=== PATIENT | male | born 1965 | race Caucasian/White ===

== ENCOUNTER 2018-07-11 12:23 | Emergency (ER) | payer SELFPAY ==
[~2018-07-11] VITALS: Ht 185.4 cm; Wt 84.1 kg
[2018-07-11 12:35] VITALS: Ht 185.4 cm; Wt 84.1 kg
[2018-07-11 13:29] LABS: BASOPHILS 0.3 % (0-2); EOSINOPHILS 1.3 % (0-7); HEMATOCRIT 45.4 % (42.0-54.0); HEMOGLOBIN 16.3 g/dL (13.5-17.5); IMMATURE GRANULOCYTES 0.2 % (0-5); LYMPHOCYTES 10.4 % (15-50); MCH 32.1 pg (26.0-34.0); MCHC 35.9 g/dL (31.0-37.0); MCV 89.4 fL (80.0-100.0); MEAN PLATELET VOLUME 10.8 fL (7.4-10.4); MONOCYTES 5.8 % (2-11); PLATELET COUNT 172 10x3/uL (130-400); RBC 5.08 10x6/uL (4.20-6.10); RDW 13.8 % (11.5-14.5); WBC 10.4 10x3/uL (4.8-10.8)
[2018-07-11 13:45] LABS: ALKALINE PHOSPHATASE 45 U/L (46-116); ALT (SGPT) 24 U/L (10-68); BILIRUBIN - TOTAL 1.57 mg/dL (0.2-1.3); CALC OSMOLALITY 276 mosm/kg (275-300); CALCIUM 8.8 mg/dL (8.5-10.1); CARBON DIOXIDE 21.4 mmol/L (21.0-32.0); CHLORIDE - SERUM 103 mmol/L (98-107); CREATININE - SERUM 1.1 mg/dL (0.6-1.3); GLUCOSE 115 mg/dL (74-106); POTASSIUM - SERUM 3.8 mmol/L (3.5-5.1); SODIUM 138 mmol/L (136-145); UREA NITROGEN 12 mg/dL (7-18); eGFR NON AFRICAN AMERICAN 75 mL/min (90-120)
[2018-07-11 14:01] LABS: CREATINE KINASE 138 UL (21-232)
[2018-07-11] MEDS ORDERED: VENTOLIN HFA18 GM INH (16:56)
[2018-07-11] MEDS ORDERED: LEVAQUIN750 MG PO (16:56)
[2018-07-11 19:35] VITALS: BP 130/87
[2018-07-25 19:01] VITALS: Ht 185.4 cm; Wt 84.1 kg
== END 2018-07-11 19:35 | disposition home or self-care (01) ==
LOC: D.ER 12:23
PROVIDERS: Emergency Medicine
DX: R05 Cough (principal); R53.81 Other malaise; J18.9 Pneumonia, unspecified organism; R07.9 Chest pain, unspecified; R06.02 Shortness of breath; R09.89 Other specified symptoms and signs involving the circulatory and respiratory systems; F17.200 Nicotine dependence, unspecified, uncomplicated; R00.0 Tachycardia, unspecified; I44.7 Left bundle-branch block, unspecified

== ENCOUNTER 2018-07-24 10:12 | Inpatient (IN) | payer MEDICAID ==
[~2018-07-24] VITALS: Ht 185.4 cm; Wt 101.2 kg
[2018-07-24] VITALS (55 sets, daily range): BP systolic 72–137; BP diastolic 49–99; BMI 26.4
--- NOTE | ~2018-07-24 | EC ---
PATIENT:IRASEMA CORDON DATE OF SERVICE: 07/24/18 SEX: M MEDICAL RECORD: [id number] DATE OF : 67 LOCATION:[facility] D230 AGE OF PATIENT: 52 ADMISSION DATE: 07/24/18 REFERRING PHYSICIAN: INTERPRETING PHYSICIAN: VAISHNAVI BEVERLY MD ECHOCARDIOGRAM REPORT ECHO CHARGES 5 ECHO LIMITED Date: 07/30/18 CLINICAL DIAGNOSIS: ASSESS EF HX OF CAD ECHOCARDIOGRAPHIC MEASUREMENTS (adult normal given) AC root (d.<3.7cm) 4.2 cm LV Septum d (<1.2 cm> 1.0 cm Valve Excursion 1.4 cm LV Septum (systole) 1.2 cm Left Atria (s.<4.0cm> 4.5 cm LVPW d(<1.2cm) 1.5 cm RV (d.<2.3cm) 5.8 cm LVPW (sytole) 1.8 cm LV diastole(<5.6CM) 7.4 cm MV E-F(>70mm/sec) cm LV systole 6.3 cm LVOT Diameter cm MV exc.(>10mm) cm Est.ejection fraction (50-75%) % DOPPLER: LVIT cm/sec A cm/sec E cm/sec LA cm/sec RVSP 34 mmHg LVOT cm/sec AOP1/2T m/s Asc. Ao cm/sec RVOT cm/sec RA cm/sec PA cm/sec AV Gradient Peak mmHg AV Mean mmHg AV Area cm MV Gradient Peak mmHg MV Mean mmHg MV Area cm COMMENTS: Technical Architect: 2 YING VARNER Co Founder: 3 Dr. Potts TAPE# PACS Pericardial Effusion N DATE OF SERVICE: Adequate 2D echo, color flow, spectral Doppler, and M-mode No LVH. LV internal dimension are dilated. LV is globally hypokinetic with more marked anterior hypokinesis. Overall, function reduced 30-35%. Aortic valve shows no evidence of stenosis by Doppler interrogation. Left atrium dilated to 4.5 cm. Mitral valve shows no prolapse. Yfat-cr-nkptgnqd MR. Right-sided chamber is grossly normal. Mild TR. Estimated RV systolic pressure is estimated greater than or equal to 34 mmHg via the continuity equation. ECHOCARDIOGRAM REPORT [id number] IRASEMA CORDON TRANSINT:[id number] Voice Confirmation ID: [id number] DOCUMENT ID: [id number] VAISHNAVI BEVERLY MD at 1418 CC: [id number] DICTATION DATE: 07/30/181617 TRACTOR SWEEPER DRIVER: 07/30/182200 DIS IN 08/02/18 [facility] [address] [place] [address]
--- NOTE | ~2018-07-24 | CN ---
PATIENT NAME:IRASEMA CORDON MEDICAL RECORD: [id number] : 67 LOCATION:[facility].2305 ADMIT DATE: 07/24/18 ACCOUNT: [id number] CONSULTING PHYSICIAN: LUH HAUSER MD REFERRING PHYSICIAN: CHARLY BLANK MD DATE OF CONSULTATION: 07/24/2018 CARDIOLOGY CONSULTATION DIAGNOSES: 1. Non-Q-wave myocardial infarction. 2. Coronary artery disease. 3. Previous PTCA stent. 4. Respiratory failure requiring intubation. 5. COPD. 6. Past smoking history. HISTORY OF PRESENT ILLNESS: This is a gentleman with a past cardiac history, who called this morning, he began having chest pain and shortness of breath. He presented to the Emergency Room, was in respiratory failure at the time of presentation, requiring immediate intubation. His chest x-ray is compatible with possible congestive heart failure, pulmonary edema. His troponin is positive. He was initially with sinus tachycardia, now he is with sinus bradycardia. His bradycardia is going to the low 40s. PHYSICAL EXAMINATION: GENERAL APPEARANCE: Well-nourished, well-developed, appears stated age. Level of distress, comfortable. PSYCHIATRIC: Mental status, alert, normal affect. Orientation, oriented to time, place and person. EYES: Lids and conjunctiva, noninjected. No discharge, no pallor. ENT: Lips, teeth, gums, normal dentition. Oropharynx, no cyanosis, no pallor. NECK: Carotid arteries, bilateral normal upstroke, no bruits, no thrills. JUGULAR VEINS: No jugular venous pressure or distention. CERVICAL LYMPH NODES: Nontender, nonenlarged. THYROID: Not enlarged. Nontender. No nodules. LUNGS: Respiratory effort, unlabored. CHEST: Normal curvature. No thoracic deformity. No chest wall tenderness. Percussion, resonant. Auscultation, clear. No wheezes, no rales, no rhonchi. CARDIOVASCULAR: Precordial exam, nondisplaced. No heaves or pericardial thrills. Rate and rhythm, regular. Heart sounds, normal S1, normal S2. No S3, no gallop, no rub. Systolic murmur, not heard. Diastolic murmur, not heard. EXTREMITIES: No cyanosis, no edema. Peripheral pulses, full and equal in all extremities, except as noted. No bruits appreciated. ABDOMEN: Soft, nondistended. Normal aorta. No bruit. Nontender. No masses. Liver, nontender, no hepatomegaly. Spleen, nontender, no splenomegaly. MUSCULOSKELETAL: No joint tenderness. No joint swelling. No erythema. NEUROLOGICAL: Normal gait, normal strength, normal tone. SKIN: Warm and dry. OVERALL IMPRESSION: Non-Q-wave myocardial infarction, now with rhythm disturbances and bradycardia. He is intubated, but he is becoming more emergent from a cardiac standpoint, we will proceed with emergent coronary angiography. Further care depends upon the findings of the angiography. We will also place a temporary pacemaker at this time. CONSULT REPORT [id number] IRASEMA CORDON TRANSINT:[id number] Voice Confirmation ID: [id number] DOCUMENT ID: [id number] LUH HAUSER MD at 3533 CC: [id number] DICTATION DATE: 07/24/18 1304 BUNCH BREAKER MACHINE OPERATOR: 07/24/18 1319 ADM IN [facility] [address] [place] [id number]
--- NOTE | ~2018-07-24 | HEMODYNAMI ---
PATIENT:CHRIS CORDON MEDICAL RECORD: [id number] : 67 LOCATION:[facility] D.2305 ADMISSION DATE: 07/24/18 Generatedon:07/24/201814:41 Patient name: CHRIS CORDON Patient #: [id number] SSN: : Date of study: 07/24/2018 Page: Of Hemodynamic Procedure Report Patient Data Patient Demographics Procedure consent was obtained First Name: CHRIS Gender: Male Last Name: BRAVO : 1965 Patient #: [id number] Age: 52 year(s) Race: Unknown Additional ID: [id number] Contact details Address: [address] [place] [address] State: [place] City: [place] Zip code: [address] Past Medical History Allergies: No known allergies Admission Admission Data Admission Date: 07/24/2018 Admission Time: 12:26 Room #: D2305 Lab Results Lab Result Date: 07/24/2018 Lab Result Time: 11:20 Biochemistry Name Units Result Min Max BUN mg/dl 28 --(----)-* 7 18 Creatinine mg/dl 1.6 --(----)-* 0.6 1.3 Troponin l ng/ml 1.049 --(----)-* 0 0.06 CBC Name Units Result Min Max Hematocrit % 44.3 --(*---)-- 42 54 Hemoglobin g/dl 15.2 --(-*--)-- 13.5 17.5 Procedure Procedure Types Cath Procedure Diagnostic Procedure LHC LHC w/Coronaries Intra-Aortic Balloon Pump PCI Procedure Coronary Stent Coronary Stent Initial Procedure Description Procedure Date Procedure Date: 07/24/2018 Procedure Start Time: 13:52 Procedure End Time: 14:41 Procedure Staff Name Function José Miguel Pink MD Performing Physician Jer Brandon RT Scrub Radha Taveras RT Monitor Gisella Holcomb RN Nurse Danielle Neville RN Nurse Aldo Britt RT Monitor Procedure Data Cath Procedure Fluoroscopy Diagnostic fluoroscopy Total fluoroscopy Time: 9 time: 9 min min Diagnostic fluoroscopy Total fluoroscopy dose: 826 dose: 826 mGy mGy Contrast Material Contrast Material Type Amount (ml) Isovue 300 95 Entry Location Entry Primary Successful Side Size Upsize Upsize Entry Closure Succes sful Closure Location (Fr) 1 (Fr) 2 (Fr) Remarks Device Remarks Femoral Right 6 Fr 7 Fr artery Short Short Estimated blood loss: 10 ml Diagnostic catheters Device Type Used For End Catheter Placement MULTIPACK Pigtail 5 Fr Procedure catheter MULTIPACK JL 4.0 5Fr Procedure catheter MULTIPACK 3DRC 5Fr Procedure catheter Procedure Medications Medication Administration Route Dosage Oxygen 100 0.9% NaCl I.V. 100 ml/hr Diprivan 1% I.V. 40 mcg/kg/min (Propofol) Heparin Bolus I.V. 4000 units Integrilin (Bolus I.V. 7.3 ml 2mg/ml) Integrilin Drip I.V. drip 6.6 ml/hr (75mg/100ml) Heparin Flush Bag 1 bags (1000units/500ml NS) Hemodynamics Rest HGB: 15.2 (g/dl) Heart Rate: 77 (bpm) Pressure Samples Time Site Value (mmHg) Purpose Heart Use Rate(bpm) 13:53 LV 90/18,26 Snapshot 77 Snapshots Pre Cath Intra NCS Post Cath Vital Signs Time Heart Resp SPO2 etCO2 NIBP (mmHg) Rhythm Pain Sedation Rate (ipm) (%) (mmHg) Status Level (bpm) 13:41:27 88 20 95 0 114/86(101) NSR 0 (11) 2(A) , No pain 13:45:37 81 21 95 0 105/76(91) NSR 0 (11) 2(A) , No pain 13:49:40 85 21 95 0 108/82(93) NSR 0 (11) 2(A) , No pain 13:53:52 76 21 98 0 98/69(86) NSR 0 (11) 2(A) , No pain 13:58:02 82 20 97 0 97/69(83) NSR 0 (11) 2(A) , No pain 14:02:10 88 20 99 0 91/70(80) NSR 0 (11) 2(A) , No pain 14:06:14 84 21 99 0 104/75(87) NSR 0 (11) 2(A) , No pain 14:10:56 89 20 98 0 132/98(119) NSR 0 (11) 2(A) , No pain 14:15:12 79 20 96 0 106/71(87) NSR 0 (11) 2(A) , No pain 14:19:25 79 21 97 0 102/69(89) NSR 0 (11) 2(A) , No pain 14:23:36 73 20 97 0 87/64(73) NSR 0 (11) 2(A) , No pain 14:28:33 84 20 95 0 137/79(92) NSR 0 (11) 2(A) , No pain 14:32:49 77 20 95 0 95/69(85) NSR 0 (11) 2(A) , No pain 14:36:59 78 21 98 0 92/61(74) NSR 0 (11) 2(A) , No pain 14:41:07 73 20 98 0 86/64(79) NSR 0 (11) 2(A) , No pain Medications Time Medication Route Dose Verified Delivered Reason Notes Effectiveness by by 13:43:00 Oxygen ventilator 100% FiO2 José Miguel gonzalez 02 sats Apryl HUMMEL 13:43:10 0.9% NaCl I.V. 100 ml/hr José Miguel Santos used for Apryl Neville air dispatcher 13:43:33 Diprivan 1% I.V. 40mcg/kg/min José Miguel Santos for sedatio n (Propofol) Apryl Neville RN 13:57:46 Heparin Bolus I.V. 4000 units José Miguel Santos for verified Apryl Neville anticoagulation with dr CHANDU pink 13:59:22 Integrilin I.V. 7.3 ml José Miguel Santos for Wasted (Bolus 2mg/ml) Apryl Neville antiplatelet 2.7 ml RN therapy of vial 14:04:30 Integrilin Drip I.V. drip 6.6 ml/hr José Miguel Santos for renal (75mg/100ml) Apryl Neville anticoagulation dose RN 14:17:38 Heparin Flush 1 bags José Miguel Velasqueza for Bag Apryl Neville IABP . (1000units/500ml RN NS) Procedure Log Time Note 13:00:35 Gisella Holcomb RN sent for patient. Start room use. 13:11:13 Informed consent obtained and on chart 13:11:34 Diagnostic Cath status Elective 13::41 Time tracking: Regular hours (M-F 7:00 - 5:00) 13:11:44 Plan of Care:Hemodynamics will remain stable., Cardiac rhythm will remain stable., Comfort level will be maintained., Respiratory function will remain adequate., Patient/ family verbilizes understanding of procedure., Procedure tolerated without complication., Recovers from procedure without complications.. 13:11:53 H&P Date Dictated: 07/24/2018 ER History on chart., New H&P dictated by physician.. 13:12:41 Lab Result : BUN 28 mg/dl 13:: Lab Result : Creatinine 1.6 mg/dl 13:: Lab Result : Troponin l 1.049 ng/ml 13::41 Lab Result : Hematocrit 44.3 % 13::41 Lab Result : Hemoglobin 15.2 g/dl 13::43 Lab results completed and on chart. 13:25:43 Procedure type changed to Cath procedure, Diagnostic procedure, LHC, LHC w/Coronaries, Intra-Aortic Balloon Pump, PCI procedure, Coronary Stent, Coronary Stent Initial 13:33:55 Patient received from ED to CCL 1 On ventilator. Tansferred to table in Supine position. 13:33:57 Warm blankets applied, and dustin hugger turned on for patient comfort. 13:33:57 Correct patient and procedure confirmed by team. 13:33:58 ECG and BP/O2 sat monitors applied to patient. 13:33:58 Pre-procedure instructions explained to patient. 13:34:04 Unable to provide pre-op teaching due to educational barrier. Vent 13:40:31 Vital chart was started 13:43:00 Oxygen 100% FiO2 ventilator was administered by ; for low 02 sats; 13:43:10 0.9% NaCl 100 ml/hr I.V. was administered by Danielle Neville RN; used for procedure; 13:43:22 Use device set Femoral Dx 13:43:24 ACIST Syringe (66722) opened to sterile field. 13:43:25 Bag Decanter (2001S) opened to sterile field. 13:43:28 Medline Cath Pack ([id number]) opened to sterile field. 13:43:29 DIAGNOSTIC WIRE .035 260cm J wire ([id number]) opened to sterile field. 13:43:32 ACIST Hand Control (02491) opened to sterile field. 13:43:33 Diprivan 1% (Propofol) 40mcg/kg/min I.V. was administered by Danielle Neville RN; for sedation; 13:43:33 ACIST Manifold (93358) opened to sterile field. 13:43:34 DIAGNOSTIC Multipack 5Fr catheter set (SV7858) opened to sterile field. 13:43:36 Tegaderm 4 x 4 (1626W) opened to sterile field. 13:44:11 SHEATH Prelude 6Fr 0.035 (BOQ-0L-05-035) opened to sterile field. 13:44:12 SHEATH Prelude 6Fr 0.035 (HAW-9A-36-035) opened to sterile field. 13:46:45 Pt intubated upon arrival to ER and propofol drip initiated. Will use propofol as sedation for cath procedure. 13:47:34 Patient allergic to No known allergies 13:47:43 Is patient on blood thinner?No 13:47:46 Is the patient allergic to Iodine/contrast media? No. 13:47:50 Patient diabetic? Unknown. 13:47:58 Previous problem with sedation/anesthesia? Unknown ? 13:48:03 Snore? Unknown 13:48:09 Sleep apnea? Unknown 13:48:17 Deviated septum? Unknown 13:48:19 Opens mouth fully? Unknown 13:48:22 Sticks out tongue? Unknown 13:48:33 Airway obstruction? No ? 13:48:48 IV patent on arrival in right forearm, left forearm with 0.9% NaCl at [facility]. 13:48:54 Right groin area was prepped with chlora-prep and draped in sterile fashion 13:48:57 Alarms reviewed by R. N. 13:48:57 Sharps counted by scrub and verified by R.N. 13:48:58 Physician arrived 13:48:59 --------ALL STOP TIME OUT------ 13:48:59 Final Timeout: patient, procedure, and site verified with staff and physician. All members of the team are in agreement. 13:49:01 Right groin site verified by team. 13:49:33 Physical assessment completed. ASA score P 4 - A patient with severe systemic disease that is a constant threat to life as per José Miguel Pink MD. 13:49:41 Sedation plan: IV Moderate Sedation Medication:Versed, Fentanyl 13:51:38 Zero performed for pressure channel P1 13:51:59 Procedure started. 13:51:59 Full Disclosure recording started 13:52:05 Local anesthetic to right femoral artery with Lidocaine 2% by José Miguel Pink MD.INITIAL ACCESS ONLY 13:52:52 A 6 Fr Short sheath was inserted into the Right Femoral artery 13:53:02 A MULTIPACK Pigtail 5 Fr catheter was advanced over the wire and used for Procedure. 13:54:08 LV hemodynamics recorded. 13:54:10 LV gram done using WHITAKER 13:54:16 EF : 10 % 13:54:38 Catheter removed. 13:54:43 A MULTIPACK JL 4.0 5Fr catheter was advanced over the wire and used for Procedure. 13:55:21 LCA angiography performed. 13:55:57 Catheter removed. 13:56:14 A MULTIPACK 3DRC 5Fr catheter was advanced over the wire and used for Procedure. 13:56:47 RCA angiography performed. 13:56:51 Catheter removed. 13:56:53 Proceeding to intervention. 13:57:08 GUIDE 6FR AR 2.0 SH catheter ([id number]) opened to sterile field. 13:57:46 Heparin Bolus 4000 units I.V. was administered by Danielle Neville RN; for anticoagulation; verified with dr pink 13:58:24 FIELDER XT J 300cm guide wire ([id number]) opened to sterile field. 13:59:01 6 Fr AR 2 SH guide catheter was inserted over the wire 13:59:22 Integrilin (Bolus 2mg/ml) 7.3 ml I.V. was administered by Danielle Neville RN; for antiplatelet therapy; Wasted 2.7 ml of vial 13:59:32 CHOICE wire advanced. 14:00:32 Inflate balloon Inflation number: 1 A INTEGRITY RX 2.5 x 18 stent ([id number]) was prepped and advanced across the Dist RCA, then inflated to 13 CHERYL for 0:10 (min:sec). 14:00:44 Stent catheter was removed intact over wire. 14:01:39 Place stent Inflation Number: 1 A INTEGRITY RX 3.0 x 30 stent ([id number]) was prepped and advanced across the Mid RCA. The stent was deployed at 13 CHERYL for 0:10 (min:sec). 14:02:24 Stent catheter was removed intact over wire. 14:04:30 Integrilin Drip (75mg/100ml) 6.6 ml/hr I.V. drip was administered by Danielle Neville RN; for anticoagulation; renal dose 14:05:15 Place stent Inflation Number: 1 A INTEGRITY RX 3.0 x 30 stent ([id number]) was prepped and advanced across the Prox RCA. The stent was deployed at 13 CHERYL for 0:10 (min:sec). 14:05:20 Stent catheter was removed intact over wire. 14:05:21 Wire removed. 14:05:24 Guide catheter removed. 14:06:23 INFLATOR Merit BasixCompak (DU0617) opened to sterile field. 14:07:12 SHEATH 7FR [place] (CIS391) opened to sterile field. 14:07:27 IABP 34cm balloon catheter ([id number]) opened to sterile field. 14:07:49 Sheath upsized to a 7 Fr Short. 14:08:13 IABP-------- 14:08:30 34cc IABP inserted into the RFA . 14::23 Augmentation: 1:1 per physician. 14:14:27 Trigger: Pressure 14:17:38 Heparin Flush Bag (1000units/500ml NS) 1 bags was administered by Danielle Neville RN; ; for IABP. 14:19:59 IABP SEWN IN 14:20:12 SUTURE SILK 2-0 BLK BR FS 18 I opened to sterile field. 14:20:13 SUTURE SILK 2-0 BLK BR FS 18 I opened to sterile field. 14:21:34 Procedure ended.(Physican Out) 14:21:41 Fluoroscopy time 09.00 minutes. 14:21:47 Fluoroscopy dose: 826 mGy 14:21:47 Flurop Dose total: 826 14:21:57 Contrast amount:Isovue 300 95ml. 14:25:36 Insertion/operative site no bleeding no hematoma. 14:25:45 Post-op/insertion site Right Femoral artery dressed using a 4 x 4 and Tegaderm. 14:26:18 Post right femoral artery:stable 14:26:47 Post-procedure physical assessment completed. ASA score P 4 - A patient with severe systemic disease that is a constant threat to life as per José Miguel Pink MD. 14:26:56 Post procedure rhythm: sinus rhythm 14:27:32 Estimated blood loss: 10 ml 14:27:40 Post procedure instruction explained to patient.Patient verbalizes understanding. 14:27:42 Patient needs reinforcement of post procedure teaching. 14:32:27 Procedure and supply charges have been captured, reviewed, submitted and are correct. 14:40:49 Vital chart was stopped 14:40:50 See physician's report for complete and final results. 14:40:52 Report given to CVICU. 14:40:57 Patient transfered to CVICU with Bed. 14:40:59 Procedure ended. 14:40:59 Full Disclosure recording stopped 14:41:02 End room use (Document Last) Intervention Summary Intervention Notes Time ActionType Lesion and Equipment Action# Pressure Duration Attributes Used 14:00:32 Inflate Dist RCA INTEGRITY RX 1 13 00:10 balloon 2.5 x 18 stent ([id number]) 14:01:39 Place stent Mid RCA INTEGRITY RX 1 13 00:10 3.0 x 30 stent ([id number]) 14:05:15 Place stent Prox RCA INTEGRITY RX 1 13 00:10 3.0 x 30 stent ([id number]) Device Usage Item Name Manufacture Quantity Catalog Number [facility] nt Minimal Lot# / Charge Number Stock Stock Serial# Code ACIST Syringe Acist 1 93689 883179 053843 61622 4 20 (57993) [employer] Bag Decanter Microtek 1 150184 13088 78604 9 5 () Medical Inc. Medline Cath Medline 1 [id number] 141492 03973 95207 5 5 Pack ([id number]) DIAGNOSTIC WIRE St Ttii 1 186178 264883 323052 07956 2 30 .035 260cm J wire (215568) ACIST Hand Acist 1 89109 133767 742157 20429 8 5 Control (02967) [employer] Inc ACIST Manifold Acist 1 17407 042152 750752 97603 5 5 (06676) [employer] Systems Inc DIAGNOSTIC Cardinal 1 [id number] 955610 02350 13037 5 30 Multipack 5Fr Health catheter set (ZL5347) Tegaderm 4 x 4 3M 1 1626W 075757 411597 03047 4 5 (1626W) SHEATH Prelude Merit 2 QLJ-6U-79-35 278271 7101675 19814 0 5 6Fr 0.035 Medical (UVJ-7I-38-035) MULTIPACK Cardinal 1 85290 7 5 Pigtail 5 Fr Health catheter MULTIPACK JL Cardinal 1 36002 2 5 4.0 5Fr Health catheter MULTIPACK 3DRC Cardinal 1 92160 8 5 5Fr catheter Health GUIDE 6FR AR Medtronic 1 [id number] 888134 92222 41764 6 1 2.0 SH catheter ([id number]) FIELDER RAHEEM J William 1 [id number] 750980 171880 94713 1 5 300cm guide Vascular wire ([id number]) INTEGRITY RX Medtronic 1 [id number] 324705 824547 79589 1 5 [id number] 2.5 x 18 stent ([id number]) INTEGRITY RX Medtronic 2 [id number] 943602 960160 95391 2 5 [id number] 3.0 x 30 stent [id number] ([id number]) INFLATOR Merit Merit 1 TH7965 224872 021992 78422 6 15 BasixCompak Medical ([id number]) SHEATH 7FR Terumo 1 XUV074 296022 832073 06312 8 5 [place] (PSU690) IABP 34cm [facility] 1 [id number] 599457 892899 87747 4 1 balloon [facility] catheter (575090) ([id number]) SUTURE SILK 2-0 Ethicon 2 685H 394212 38721 4 5 BLK BR FS 18 I Signature Audit [place] Stage Time Signature Unsigned Intra-Procedure 07/24/2018 Aldo Britt 2:41:30 PM RT(R) (CV) Signatures Monitor : Radha Taveras RT Signature : Date : Time : Monitor : Aldo Britt RT Signature : Date : Time : [address] [place] [address]
--- NOTE | ~2018-07-24 | CN ---
PATIENT NAME:IRASEMA BUSBY MEDICAL RECORD: [id number] : 67 LOCATION:[facility].2305 ADMIT DATE: 07/24/18 ACCOUNT: [id number] CONSULTING PHYSICIAN: ROXY LEAL MD REFERRING PHYSICIAN: RADHA BLANK MD DATE OF CONSULTATION: 07/24/2018 CONSULT REQUESTING PHYSICIAN: Radha Blank MD REASON FOR CONSULTATION: Vent management, acute respiratory failure, and cardiogenic shock. HISTORY OF PRESENT ILLNESS: Mr. Busby is a 52-year-old gentleman who is now orally intubated and sedated. The history was taken by talking to the nursing staff as well as reviewing the patient's note. The patient came into the ER with acute respiratory distress. He was in agonal breathing. The patient put on BiPAP, not getting any better, electively intubated. The patient was taken to cardiac catheterization. He has multiple vessel disease and intra-aortic balloon pump was put in and now the patient is in the ICU, sedated and on the ventilator. REVIEW OF SYSTEMS: As in the history of present illness. PAST MEDICAL HISTORY: 1. He has recent pneumonia, was seen in the ER. 2. Possible chronic obstructive pulmonary disease. PAST SURGICAL HISTORY: The detail is not obtainable. PERSONAL AND SOCIAL HISTORY: The patient is a nondrinker, but he is smoking marijuana. FAMILY HISTORY: Noncontributory. PHYSICAL EXAMINATION: GENERAL: Now, the patient is orally intubated and sedated. VITAL SIGNS: The blood pressure is 82-90 by 51, pulse is 77, respiration is 20 on assist control mechanical ventilation. HEENT: Conjunctivae are pink. Sclerae nonicteric. NECK: Supple. There is elevated JVD. CHEST: There are bilateral crackles. No wheezing. HEART: Rhythm regular, normal sound, no murmur. ABDOMEN: Soft, bowel sounds present. No hepatosplenomegaly. RECTAL: Deferred. EXTREMITIES: No cyanosis, no clubbing, no pedal edema. SKIN: Warm, normal turgor. CENTRAL NERVOUS SYSTEM: The patient is orally intubated and sedated, difficult to assess neurologic mckeon. CHEST RADIOGRAPH: There are bilateral infiltrates. LABORATORY DATA: CBC: WBC 15.5, hemoglobin 15.2, hematocrit 44.3, and the platelet count 229. Chemistry: Sodium 140, potassium is 5, BUN is 28, creatinine 1.6. CONSULT REPORT [id number] IRASEMA BUSBY ABG: The pH was 7.8, pCO2 was 57.7, the pO2 was 241, bicarbonate is 21.6. The lactic acid was 1.45. The proBNP was 19,336. IMPRESSION: 1. Acute hypoxic hypercapnic respiratory failure. 2. Acute respiratory distress syndrome with acute lung injury. 3. Pulmonary edema. 4. Multilobar pneumonia. 5. Acute myocardial infarction. 6. Respiratory acidosis. 7. Cardiogenic shock. 8. Coronary artery disease with multivessel disease. 9. Leukocytosis. RECOMMENDATIONS: 1. Continue mechanical ventilation, adjust the setting. 2. Albuterol/ipratropium nebulizer. 3. Vancomycin, Zosyn, and Levaquin to cover for Gram negative as well as questionable MRSA. 4. Low-dose methylprednisolone. 5. DVT and GI bleed prophylaxis. 6. Follow up labs and chest radiographs. The critical care time is 1 hour. TRANSINT:[id number] Voice Confirmation ID: [id number] DOCUMENT ID: [id number] ROXY LEAL MD at 1234 CC: [id number] DICTATION DATE: 07/24/18 1738 MEDICAL PHYSICS PROFESSOR: 07/24/18 1056 DIS IN 08/02/18 [address] [id number] [place] [address]
--- NOTE | ~2018-07-24 | OP ---
PATIENT NAME: IRASEMA CORDON MEDICAL RECORD: [id number] :67 LOCATION:D.[facility] D.2305 ADMISSION DATE:07/24/18 SURGEON: LUH HAUSER MD DATE OF OPERATION: 07/24/2018 PROCEDURES: 1. PTCA and stent of RCA. 2. Left heart catheterization. 3. Selective coronary angiography. 4. Left ventriculogram. 5. Intra-aortic balloon pump placement. INDICATION: Myocardial infarction, cardiomyopathy, congestive heart failure, and coronary artery disease. PROCEDURE IN DETAIL: After informed consent was obtained and after a detailed explanation of risks, benefits as well as alternative therapies, the patient elected to proceed with angiogram and angioplasty. The right femoral area was prepped and draped in normal sterile fashion. Right femoral artery was cannulated via modified Seldinger technique with placement of 7-Kinyarwanda sheath. All catheters exchanged through this sheath. FINDINGS: Left ventriculogram was performed in a standard 30-degree WHITAKER view, reveals severe global hypokinesis throughout all segments. Overall ejection fraction 10%. SELECTIVE CORONARY ANGIOGRAPHY: 1. Left main showed no significant angiographic disease. 2. Left anterior descending has 90% to 95% stenosis in the mid vessel. 3. Left circumflex has chronic total occlusion, 100% stenosis mid vessel. Distal vessel fills via ojqi-ab-eydt collaterals. 4. The right coronary has multiple areas of 80% to 90% stenosis. PTCA AND STENT OF THE RCA: Stents used were 2.5 x 18, 3.0 x 30, 3.0 x 30, all Integrity stents. Result was 0% residual stenosis. OVERALL IMPRESSION: Successful PTCA and stent of the RCA going from multiple areas of 90% initial stenosis to 0% residual. PLAN: Plan for PTCA and stent of the LAD and possible circumflex in the near future. At the end of the case, the patient remained in severe congestive heart failure and with severe cardiomyopathy. Intra-aortic balloon pump was placed. Intra-aortic balloon pump counterpulsation was undertaken. TRANSINT:[id number] Voice Confirmation ID: [id number] DOCUMENT ID: [id number] LUH HAUSER MD at 1913 CC: [id number] DICTATION DATE: 07/24/18 1417 AGRIBUSINESS PROFESSOR: 07/24/18 1543 ADM IN [facility] [address] [place] [address]
--- NOTE | ~2018-07-24 | HEMODYNAMI ---
PATIENT:IRASEMA CORDON MEDICAL RECORD: [id number] : 67 LOCATION:[facility] D.2305 ADMISSION DATE: 07/24/18 Generatedon:07/28/201812:59 Patient name: IRASEMA CORDON Patient #: [id number] SSN: : 1965 Date of study: 07/28/2018 Page: Of Hemodynamic Procedure Report Patient Data Patient Demographics Procedure consent was obtained First Name: IRASEMA Gender: Male Last Name: BRAVO : 1965 Patient #: [id number] Age: 52 year(s) Race: Unknown Additional ID: [id number] Contact details [address]: [address] [place] [address] State: [place] City: [place] Zip code: [address] Past Medical History Allergies: No known allergies Admission Admission Data Admission Date: 07/24/2018 Admission Time: 12:26 Room #: D.2305 Lab Results Lab Result Date: 07/24/2018 Lab Result Time: 11:20 Biochemistry Name Units Result Min Max BUN mg/dl 28 --(----)-* 7 18 Creatinine mg/dl 1.6 --(----)-* 0.6 1.3 Troponin l ng/ml 1.049 --(----)-* 0 0.06 CBC Name Units Result Min Max Hematocrit % 44.3 --(*---)-- 42 54 Hemoglobin g/dl 15.2 --(-*--)-- 13.5 17.5 Procedure Procedure Types Cath Procedure Diagnostic Procedure Sedation Charges Moderate Sedation up to 15 minutes PCI Procedure Coronary Stent Coronary Stent Initial Procedure Description Procedure Date Procedure Date: 07/28/2018 Procedure Start Time: 12:42 Procedure End Time: 12:54 Procedure Staff Name Function José Miguel Pink MD Performing Physician Radha Taveras RT Monitor Bria Dan RT Scrub Willis Valentin RN Nurse Procedure Data Cath Procedure Fluoroscopy Diagnostic fluoroscopy Total fluoroscopy Time: 3.2 time: 3.2 min min Diagnostic fluoroscopy Total fluoroscopy dose: 289 dose: 289 mGy mGy Contrast Material Contrast Material Type Amount (ml) Isovue 300 125 Entry Location Entry Primary Successful Side Size Upsize Upsize Entry Closure Succes sful Closure Location (Fr) 1 (Fr) 2 (Fr) Remarks Device Remarks Femoral Right 6 Fr Exoseal artery Short Estimated blood loss: 5 ml Procedure Complications No complications Procedure Medications Medication Administration Route Dosage Oxygen Heparin Flush Bag added to field 2 bags (1000units/500ml NS) 0.9% NaCl I.V. 100 ml/hr Heparin Bolus I.V. 4000 units Hemodynamics Rest HGB: 15.2 (g/dl) Heart Rate: 132 (bpm) Snapshots Pre Cath Intra NCS Post Cath Vital Signs Time Heart Resp SPO2 etCO2 NIBP (mmHg) Rhythm Pain Sedation Rate (ipm) (%) (mmHg) Status Level (bpm) 12:32:40 132 25 97 0 115/89(106) NSR 0 (11) 3(A) , No pain 12:36:47 129 23 96 0 113/83(100) NSR 0 (11) 3(A) , No pain 12:40:53 126 21 97 0 108/82(86) NSR 0 (11) 3(A) , No pain 12:44:55 129 22 97 0 111/87(98) NSR 0 (11) 3(A) , No pain 12:49:01 130 19 97 0 105/75(88) NSR 0 (11) 3(A) , No pain 12:53:02 131 22 97 0 111/84(96) NSR 0 (11) 3(A) , No pain 12:55:28 131 22 97 0 108/82(94) NSR 0 (11) 3(A) , No pain Medications Time Medication Route Dose Verified Delivered Reason Notes Effectiveness by by 12:39:01 Oxygen José Miguel resp Apryl HUMMEL 12:39:14 Heparin Flush added 2 José Miguel Pedro used for Bag to bags Apryl Valentin RN procedure (1000units/500ml field NS) 12:39:24 0.9% NaCl I.V. 100 José Miguel Pedro Per physician ml/hr Apryl Valentin RN 12:48:43 Heparin Bolus I.V. 4000 José Miguel Pedro for units Apryl Valentin RN anticoagulation Procedure Log Time Note 11:46:14 Willis Valentin RN sent for patient. Start room use. 11:46:15 Time tracking: Regular hours (M-F 7:00 - 5:00) 11:46:20 Plan of Care:Hemodynamics will remain stable., Cardiac rhythm will remain stable., Comfort level will be maintained., Respiratory function will remain adequate., Patient/ family verbilizes understanding of procedure., Procedure tolerated without complication., Recovers from procedure without complications.. 12:31:39 Patient received from ICU to [facility] 3 Alert and oriented. Tansferred to table in Supine position. 12:31:40 Warm blankets applied, and dustin hugger turned on for patient comfort. 12:31:40 Correct patient and procedure confirmed by team. 12:31:41 Signed procedure consent form obtained from patient. 12:31:42 ECG and BP/O2 sat monitors applied to patient. 12:31:43 Vital chart was started 12:33:29 Baseline sample Acquired. 12:33:30 Full Disclosure recording started 12:33:41 H&P Date Dictated: 07/28/2018 Within 30 days and on chart.. 12:33:43 Pre-procedure instructions explained to patient. 12:33:43 Pre-op teaching completed and patient verbalized understanding. 12:33:47 Family unavailable. 12:33:51 Patient NPO since Midnight. 12:33:52 Is the patient allergic to Iodine/contrast media? No. 12:33:59 Was the patient premedicated? No 12:34:00 Is patient on blood thinner?Yes 12:34:03 ACC The patient was administered the following blood thiners within the last 24 hours: ACCPlavix 12:35:21 Patient diabetic? Unknown. 12:35:25 Previous problem with sedation/anesthesia? Unknown ? 12:35:26 Snore? Unknown 12:35:28 Sleep apnea? Unknown 12:35:29 Deviated septum? Unknown 12:35:31 Opens mouth fully? Unknown 12:35:33 Sticks out tongue? Unknown 12:35:35 Airway obstruction? Unknown ? 12:35:39 Dentures? Unknown ? 12:35:49 Patient pain scale 0/10 ?. 12:36:06 IV patent on arrival in left forearm with 0.9% NaCl at [facility]. 12:36:11 Lab results completed and on chart. 12:36:16 Right groin area was prepped with chlora-prep and draped in sterile fashion 12:36:17 Alarms reviewed by R. N. 12:36:17 Sharps counted by scrub and verified by R.N. 12:39:01 Oxygen was administered by resp; ; 12:39:14 Heparin Flush Bag (1000units/500ml NS) 2 bags added to field was administered by Willis Valentin RN; used for procedure; 12:39:24 0.9% NaCl 100 ml/hr I.V. was administered by Willis Valentin RN; Per physician; 12:39:48 Physician arrived 12:39:48 --------ALL STOP TIME OUT------ 12:39:49 Final Timeout: patient, procedure, and site verified with staff and physician. All members of the team are in agreement. 12:39:51 Right groin site verified by team. 12:39:53 Physical assessment completed. ASA score P 2 - A patient with mild systemic disease as per José Miguel Pink MD. 12:39:59 Sedation plan: IV Moderate Sedation Medication:Versed, Fentanyl 12:41:17 Use device set Acist 12:41:18 ACIST Syringe (51276) opened to sterile field. 12:41:19 ACIST Hand Control (27314) opened to sterile field. 12:41:19 ACIST Manifold (14795) opened to sterile field. 12:41:55 SHEATH Prelude 6Fr 0.035 (NLQ-5G-23-035) opened to sterile field. 12:41:56 INFLATOR Merit BasixCompak (LR4355) opened to sterile field. 12:42:04 GUIDE 6FR XBLAD 4.0 catheter (24669921) opened to sterile field. 12:42:14 CHOICE PT Extra Support 182cm wire ([id number]) opened to sterile field. 12:42:52 Procedure started. 12:42:56 Local anesthetic to right femoral artery with Lidocaine 2% by José Miguel Pink MD.INITIAL ACCESS ONLY 12:43:20 A 6 Fr Short sheath was inserted into the Right Femoral artery 12:44:22 6 Fr xblad 4 guide catheter was inserted over the wire 12:44:37 Zero performed for pressure channel P1 12:44:44 Zero performed for pressure channel P1 12:44:50 Zero performed for pressure channel P1 12:44:56 Zero performed for pressure channel P1 12:45:07 Zero performed for pressure channel P1 12:45:28 Zero performed for pressure channel P1 12:45:39 Zero performed for pressure channel P1 12:45:47 Zero performed for pressure channel P1 12:46:42 LCA angiography performed. 12:46:45 Injector settings: Ml/sec: 3, Volume: 6, 12:47:53 choice pt wire advanced. 12:47:55 Wire advanced across lesion. 12:48:43 Heparin Bolus 4000 units I.V. was administered by Willis Valentin RN; for anticoagulation; 12:49:24 Place stent Inflation Number: 1 A INTEGRITY RX 2.25 x 14 stent ([id number]) was prepped and advanced across the Dist LAD. The stent was deployed at 11 CHERYL for 0:10 (min:sec). 12:50:00 Inflation number: 1 The stent balloon was then re-inflated across the Mid LAD to 15 CHERYL for 0:10 (min:sec). 12:51:17 Place stent Inflation Number: 2 A INTEGRITY RX 2.5 x 22 stent ([id number]) was prepped and advanced across the Mid LAD. The stent was deployed at 11 CHERYL for 0:10 (min:sec). 12:51:47 Stent catheter was removed intact over wire. 12:52:20 Wire removed. 12:52:21 Guide catheter removed. 12:52:28 EXOSEAL 6Fr (EX600) opened to sterile field. 12:52:36 Sheath removed intact; hemostasis achieved with Exoseal to the Right Femoral artery. 12:52:38 Procedure ended.(Physican Out) 12:53:48 Fluoroscopy time 03.20 minutes. 12:53:52 Flurop Dose total: 289 12:53:52 Fluoroscopy dose: 289 mGy 12:53:57 Contrast amount:Isovue 300 125ml. 12:53:58 Sharps counted by scrub and verified by R.N. 12:54:00 Insertion/operative site no bleeding no hematoma. 12:54:03 Post-op/insertion site Right Femoral artery dressed using a 4 x 4 and Tegaderm. 12:54:05 Post right femoral artery:stable 12:54:06 Post Procedure Pulses reassessed and unchanged 12:54:09 Post procedure rhythm: unchanged. 12:54:11 Estimated blood loss: 5 ml 12:54:19 Patient needs reinforcement of post procedure teaching. 12:54:32 Procedure and supply charges have been captured, reviewed, submitted and are correct. 12:54:36 Procedure Complication : No complications 12:54:38 Vital chart was stopped 12:54:39 See physician's report for complete and final results. 12:54:55 Report given to ICU. 12:54:57 Patient transfered to ICU with Stretcher. 12:54:59 Procedure ended. 12:54:59 Full Disclosure recording stopped 12:55:05 ACC-PCI Only Patient was given prescriptions, or instructed by José Miguel Pink MD to start/continue the following medications upon discharge: Plavix 12:55:06 End room use (Document Last) 12:55:28 Procedure type changed to Cath procedure, Diagnostic procedure, Sedation Charges, Moderate Sedation up to 15 minutes, PCI procedure, Coronary Stent, Coronary Stent Initial Intervention Summary Intervention Notes Time ActionType Lesion and Equipment Action# Pressure Duration Attributes Used 12:49:24 Place stent Dist LAD INTEGRITY RX 1 11 00:10 2.25 x 14 stent ([id number]) 12:50:00 Reinflate Mid LAD INTEGRITY RX 1 15 00:10 stent 2.25 x 14 balloon stent ([id number]) 12:51:17 Place stent Mid LAD INTEGRITY RX 2 11 00:10 2.5 x 22 stent ([id number]) Device Usage Item Name Manufacture Quantity Catalog Number Hospital Part Current Minimal Lot# / Charge Number Stock Stock Serial# Code ACIST Syringe Acist 1 63572 [id number] 735031 862214 20 (88502) [employer] ACIST Hand Acist 1 70926 226646 202514 585203 5 Control (03092) [employer] ACIST Manifold Acist 1 56271 489170 762831 075595 5 (94737) [employer] SHEATH Prelude Merit 1 VFM-2V-27-35 620753 4467248 876462 5 6Fr 0.035 Medical (XIG-7D-92-035) INFLATOR Merit Merit 1 RB8842 798066 998494 978615 15 [employer] [facility] (VO0679) GUIDE 6FR XBLAD Cardinal 1 [id number] 088350 880872 200702 3 4.0 c-crowd ([id number]) CHOICE PT Extra Rogers 1 [id number] 440208 352013 080705 5 Support 182cm Scientific wire (0008891I6) INTEGRITY RX Medtronic 1 [id number] 722190 182395 923122 5 [id number] 2.25 x 14 stent ([id number]) INTEGRITY RX Medtronic 1 [id number] 216101 550061 112768 5 [id number] 2.5 x 22 stent ([id number]) EXOSEAL 6Fr Cardinal 1 EX600 102194 675412 338280 10 (EX600) Health Signature Audit [place] Stage Time Signature Unsigned Intra-Procedure 07/28/2018 Radha Taveras 12:58:56 PM RT(R) Signatures Monitor : Radha Taveras RT Signature : Date : Time : [address] [address]
--- NOTE | ~2018-07-24 | MORECARE ---
CASE MANAGEMENT DISCHARGE SUMMARY PATIENT: IRASEMA CORDON UNIT: [id number] ADM DATE: 07/24/18 AGE: 52 : 67 SEX: M ROOM/BED: D.2305 AUTHOR: BA RODRIGUEZ PHYSICIAN: REFERRING PHYSICIAN: CHARLY BLANK MD DATE OF SERVICE: 07/27/18 Discharge Plan Patient Name: IRASEMA CORDON Facility: [facility]:[place] : 1965 Planned Disposition: Home Anticipated Discharge Date: Discharge Date: Expected LOS: Initial Reviewer: [email or web address] Initial Review Date: 07/24/2018 Generated: 07/27/18 12:48 pm Comments DCP- Discharge Planning Updated by [email or web address]: Soniya Still on 07/27/18 10:[address] Patient Name: IRASEMA CORDON Admission Status: ER Accout number: [id number] Admission Date: 07-24-2018 : 1965 Admission Diagnosis: Attending: CHARLY BLANK Current LOS: 3 Anticipated DC Date: Planned Disposition: Home Primary Insurance: MEDICAID [place] Discharge Planning Comments: CM met with patients friend Rene Simpson. Plan is for patient to return to their home after discharge. Uncertain of needs at this time. Cm will continue to follow and assist as needed with discharge planning / needs. Mobile Therapist: Soniya Still DCP- Discharge Planning Updated by [email or web address]: Soniya Still on 07/27/18 10:[address] CM notified to see patient regarding request for POA. Patient is on vent / sedated currently on balloon pump. Rene Simpson is listed as patient emergency contact is here stating that he wanting to be patients POA. Patient is estranged from his family over the last 10 years. CM explained that without getting patient consent he would not be able to become his POA. Rene stated that the patient had requested him to be his POA prior to being placed on vent. CM explained that I would review chart to see if I could find anything stating that. CM will continue to follow and assist as needed with discharge planning / needs. Patient Name: IRASEMA CORDON Page [phone] at 1148 All edits/amendments must be made on the electronic document DICTATION DATE: 07/27/18 114 FUEL OPERATOR: ISRRAEL 07/27/18 114 RPT#: [id number] DC DATE: STATUS: ADM IN [facility] [address] [place] [address] END OF REPORT
--- NOTE | ~2018-07-24 | MORECARE ---
CASE MANAGEMENT DISCHARGE SUMMARY PATIENT: IRASEMA CORDON UNIT: [id number] ADM DATE: 07/24/18 AGE: 52 : 67 SEX: M ROOM/BED: D.2305 AUTHOR: JENNIFERDOC PHYSICIAN: REFERRING PHYSICIAN: CHARLY BLANK MD DATE OF SERVICE: 08/03/18 Discharge Plan Patient Name: IRASEMA CORDON Facility: [facility]:[place] : 1965 Planned Disposition: Home Anticipated Discharge Date: Discharge Date: 08/02/2018 Expected LOS: Initial Reviewer: [email or web address] Initial Review Date: 07/24/2018 Generated: 08/03/18 5:32 pm Comments DCP- Discharge Planning Updated by [email or web address]: Soniya Still on 07/27/18 10:[address] Patient Name: IRASEMA CORDON Admission Status: ER Accout number: [id number] Admission Date: 07-24-2018 : 1965 Admission Diagnosis: Attending: CHARLY BLANK Current LOS: 3 Anticipated DC Date: Planned Disposition: Home Primary Insurance: MEDICAID [place] Discharge Planning Comments: CM met with patients friend Rene Simpson. Plan is for patient to return to their home after discharge. Uncertain of needs at this time. Cm will continue to follow and assist as needed with discharge planning / needs. Pan Devulcanizer Helper: Soniya Still DCP- Discharge Planning Updated by [email or web address]: Soniya Still on 07/27/18 10:[address] CM notified to see patient regarding request for POA. Patient is on vent / sedated currently on balloon pump. Rene Simpson is listed as patient emergency contact is here stating that he wanting to be patients POA. Patient is estranged from his family over the last 10 years. CM explained that without getting patient consent he would not be able to become his POA. Rene stated that the patient had requested him to be his POA prior to being placed on vent. CM explained that I would review chart to see if I could find anything stating that. CM will continue to follow and assist as needed with discharge planning / needs. Last DP export: 07/27/18 10:48 Patient Name: IRASEMA CORDON Page 70166 at 1632 All edits/amendments must be made on the electronic document DICTATION DATE: 08/03/181630 PLASTIC SHAPER: ISRRAEL 08/03/18 163 RPT#: [id number] DC DATE:08/02/18 STATUS: DIS IN [facility] [address] [place] [address] END OF REPORT
--- NOTE | ~2018-07-24 | OP ---
PATIENT NAME: IRASEMA CORDON MEDICAL RECORD: [id number] :67 LOCATION:D.[facility] D.2305 ADMISSION DATE:07/24/18 SURGEON: LUH HAUSER MD DATE OF OPERATION: 07/28/2018 PROCEDURES: 1. PTCA stent LAD. 2. Selective coronary angiography. INDICATION: Cardiomyopathy, angina, respiratory failure. The patient had no family available; however, he is becoming more difficult to oxygenate and his respiratory status is becoming worse. Discussion with Dr. Vyas was felt emergent to get the heart as good as possible. Left circumflex is totally occluded and this is a chronic total occlusion, but the LAD does have 90% to 95% stenosis times 2. It is amenable to PTCA stent. Hence, we determined that this was emergent and due to the fact that there is no family and nobody else to give consent, we emergently brought the patient to the laborer tin can for this procedure. FINDINGS: The left anterior descending has 95% stenosis times 2. It was addressed with a 2.25 x 14 and 2.5 x 22, both Sorento stents. Result was 0% residual stenosis. OVERALL IMPRESSION: Successful PTCA stent of the LAD going from 95% initial stenosis times 2 to 0% residual. TRANSINT:[id number] Voice Confirmation ID: [id number] DOCUMENT ID: [id number] LUH HAUSER MD at 1914 CC: [id number] DICTATION DATE: 07/28/18 1257 SR. CONSULTANT: 07/28/18 1325 ADM IN [facility] [address] [place] [address]
[~2018-07-24 10:12] MED LIST: LEVAQUIN750 MG PO; VENTOLIN HFA18 GM INH
[2018-07-24 10:40] LABS: APTT 31.1 SECONDS (22.8-39.4); INR 1.09 (0.85-1.17); PROTIME 13.7 SECONDS (11.6-15.0)
[2018-07-24 10:42] LABS: D-DIMER-QUANTITATIVE 1.03 ug/mLFEU (0.20-0.54)
[2018-07-24 10:43] LABS: BASOPHILS 0.4 % (0-2); EOSINOPHILS 2.4 % (0-7); HEMATOCRIT 44.3 % (42.0-54.0); HEMOGLOBIN 15.2 g/dL (13.5-17.5); IMMATURE GRANULOCYTES 0.3 % (0-5); LYMPHOCYTES 29.1 % (15-50); MCHC 34.3 g/dL (31.0-37.0); MCV 93.3 fL (80.0-100.0); MEAN PLATELET VOLUME 11.4 fL (7.4-10.4); MONOCYTES 6.8 % (2-11); RBC 4.75 10x6/uL (4.20-6.10); WBC 15.5 10x3/uL (4.8-10.8)
[2018-07-24 10:44] LABS: PLATELET COUNT 229 10x3/uL (130-400)
[2018-07-24 10:54] LABS: ALBUMIN 3.7 g/dL (3.4-5.0); ALKALINE PHOSPHATASE 48 U/L (46-116); ALT (SGPT) 20 U/L (10-68); BILIRUBIN - TOTAL 1.16 mg/dL (0.2-1.3); CALC OSMOLALITY 292 mosm/kg (275-300); CALCIUM 8.5 mg/dL (8.5-10.1); CARBON DIOXIDE 18.5 mmol/L (21.0-32.0); CHLORIDE - SERUM 105 mmol/L (98-107); CREATININE - SERUM 1.6 mg/dL (0.6-1.3); PROTEIN - SERUM 7.2 g/dL (6.4-8.2); SODIUM 140 mmol/L (136-145); UREA NITROGEN 28 mg/dL (7-18); eGFR NON AFRICAN AMERICAN 49 mL/min (90-120)
[2018-07-24 10:55] LABS: GLUCOSE 246 mg/dL (74-106)
[2018-07-24 11:00] LABS: CKMB 8.3 U/L (0.0-3.6); CREATINE KINASE 128 UL (21-232); PRO BNP 19336 pg/mL (0-125)
[2018-07-24 11:23] LABS: TROPONIN-I 1.049 ng/mL (0.000-0.060)
[2018-07-24 11:58] LABS: APPEARANCE CLEAR (CLEAR); BILIRUBIN NEGATIVE (NEGATIVE); COLOR YELLOW (YELLOW); GLUCOSE NEGATIVE (NEGATIVE); KETONE NEGATIVE (NEGATIVE); NITRITE NEGATIVE (NEGATIVE); PROTEIN 2+ mg/dL (NEGATIVE); SPECIFIC GRAVITY 1.025 (1.005-1.020); UROBILINOGEN NORMAL (NORMAL)
[2018-07-24 11:59] LABS: EPITHELIAL CELLS OCC /hpf (0-5); RED CELLS - URINE OCC /hpf (0-5); WHITE CELLS - URINE NSEEN /hpf (0-5)
[2018-07-25] VITALS (82 sets, daily range): BP systolic 86–117; BP diastolic 51–73; Ht 185.4 cm; Wt 101.2 kg
[2018-07-25 03:15] LABS: BASOPHILS 0.2 % (0-2); EOSINOPHILS 0.5 % (0-7); HEMATOCRIT 36.8 % (42.0-54.0); HEMOGLOBIN 12.2 g/dL (13.5-17.5); IMMATURE GRANULOCYTES 0.3 % (0-5); LYMPHOCYTES 12.6 % (15-50); MCH 31.1 pg (26.0-34.0); MCHC 33.2 g/dL (31.0-37.0); MCV 93.9 fL (80.0-100.0); MEAN PLATELET VOLUME 10.6 fL (7.4-10.4); MONOCYTES 8.7 % (2-11); NEUTROPHILS 77.7 % (40-80); RBC 3.92 10x6/uL (4.20-6.10); RDW 14.3 % (11.5-14.5)
[2018-07-25 03:18] LABS: PLATELET COUNT 123 10x3/uL (130-400); WBC 9.6 10x3/uL (4.8-10.8)
[2018-07-25 03:28] LABS: ALBUMIN 2.9 g/dL (3.4-5.0); ALKALINE PHOSPHATASE 29 U/L (46-116); ALT (SGPT) 18 U/L (10-68); BILIRUBIN - TOTAL 0.92 mg/dL (0.2-1.3); CALCIUM 7.8 mg/dL (8.5-10.1); CHLORIDE - SERUM 108 mmol/L (98-107); PROTEIN - SERUM 5.9 g/dL (6.4-8.2); SODIUM 140 mmol/L (136-145)
[2018-07-25 03:37] LABS: CALC OSMOLALITY 280 mosm/kg (275-300); CREATININE - SERUM 0.9 mg/dL (0.6-1.3); GLUCOSE 99 mg/dL (74-106); POTASSIUM - SERUM 3.8 mmol/L (3.5-5.1); UREA NITROGEN 18 mg/dL (7-18); eGFR NON AFRICAN AMERICAN > 90 mL/min (90-120)
[2018-07-26] VITALS (85 sets, daily range): BP systolic 87–115; BP diastolic 50–76
[2018-07-26 06:18] LABS: BASOPHILS 0.5 % (0-2); EOSINOPHILS 1.7 % (0-7); HEMATOCRIT 33.1 % (42.0-54.0); HEMOGLOBIN 10.9 g/dL (13.5-17.5); IMMATURE GRANULOCYTES 0.2 % (0-5); LYMPHOCYTES 9.7 % (15-50); MCH 31.2 pg (26.0-34.0); MCHC 32.9 g/dL (31.0-37.0); MCV 94.8 fL (80.0-100.0); MEAN PLATELET VOLUME 11.2 fL (7.4-10.4); MONOCYTES 11.8 % (2-11); NEUTROPHILS 76.1 % (40-80); RBC 3.49 10x6/uL (4.20-6.10); RDW 14.7 % (11.5-14.5)
[2018-07-26 06:41] LABS: ALBUMIN 2.5 g/dL (3.4-5.0); ALKALINE PHOSPHATASE 28 U/L (46-116); ALT (SGPT) 19 U/L (10-68); BILIRUBIN - TOTAL 0.96 mg/dL (0.2-1.3); CALC OSMOLALITY 280 mosm/kg (275-300); CALCIUM 7.5 mg/dL (8.5-10.1); CARBON DIOXIDE 20.2 mmol/L (21.0-32.0); CHLORIDE - SERUM 108 mmol/L (98-107); CREATININE - SERUM 0.8 mg/dL (0.6-1.3); GLUCOSE 135 mg/dL (74-106); POTASSIUM - SERUM 3.5 mmol/L (3.5-5.1); PROTEIN - SERUM 5.4 g/dL (6.4-8.2); SODIUM 141 mmol/L (136-145); UREA NITROGEN 8 mg/dL (7-18); VANCOMYCIN - TROUGH 9.9 ug/mL (10.0-20.0); eGFR NON AFRICAN AMERICAN > 90 mL/min (90-120)
[2018-07-26 06:54] LABS: PLATELET COUNT 90 10x3/uL (130-400); WBC 6.4 10x3/uL (4.8-10.8)
[2018-07-26 07:36] LABS: PLATELET ESTIMATE DECREASED
[2018-07-27] VITALS (90 sets, daily range): BP systolic 88–117; BP diastolic 52–83
[2018-07-27 00:26] LABS: HEMATOCRIT 32.7 % (42.0-54.0); MCHC 33.6 g/dL (31.0-37.0); MEAN PLATELET VOLUME 9.4 fL (7.4-10.4); RBC 3.55 10x6/uL (4.20-6.10); RDW 14.5 % (11.5-14.5); WBC 5.3 10x3/uL (4.8-10.8)
[2018-07-27 00:27] LABS: MCV 92.1 fL (80.0-100.0)
[2018-07-27 04:09] LABS: BASOPHILS 0.2 % (0-2); EOSINOPHILS 1.9 % (0-7); HEMATOCRIT 35.1 % (42.0-54.0); HEMOGLOBIN 11.5 g/dL (13.5-17.5); LYMPHOCYTES 11.9 % (15-50); MCHC 32.8 g/dL (31.0-37.0); MCV 94.6 fL (80.0-100.0); MEAN PLATELET VOLUME 10.6 fL (7.4-10.4); MONOCYTES 9.1 % (2-11); NEUTROPHILS 76.9 % (40-80); PLATELET COUNT 85 10x3/uL (130-400); RBC 3.71 10x6/uL (4.20-6.10); RDW 14.8 % (11.5-14.5); WBC 5.4 10x3/uL (4.8-10.8)
[2018-07-27 04:26] LABS: ALBUMIN 2.7 g/dL (3.4-5.0); ALKALINE PHOSPHATASE 36 U/L (46-116); ALT (SGPT) 21 U/L (10-68); BILIRUBIN - TOTAL 1.04 mg/dL (0.2-1.3); CALC OSMOLALITY 278 mosm/kg (275-300); CARBON DIOXIDE 22.8 mmol/L (21.0-32.0); CHLORIDE - SERUM 109 mmol/L (98-107); CREATININE - SERUM 0.9 mg/dL (0.6-1.3); GLUCOSE 87 mg/dL (74-106); POTASSIUM - SERUM 3.5 mmol/L (3.5-5.1); PROTEIN - SERUM 5.9 g/dL (6.4-8.2); SODIUM 142 mmol/L (136-145); UREA NITROGEN 5 mg/dL (7-18); eGFR NON AFRICAN AMERICAN > 90 mL/min (90-120)
[2018-07-28] VITALS (71 sets, daily range): BP systolic 93–123; BP diastolic 69–96
[2018-07-28 00:39] LABS: HEMATOCRIT 35.6 % (42.0-54.0); HEMOGLOBIN 11.8 g/dL (13.5-17.5); MCH 31.2 pg (26.0-34.0); MCHC 33.1 g/dL (31.0-37.0); MCV 94.2 fL (80.0-100.0); MEAN PLATELET VOLUME 10.4 fL (7.4-10.4); RBC 3.78 10x6/uL (4.20-6.10); RDW 14.8 % (11.5-14.5); WBC 6.3 10x3/uL (4.8-10.8)
[2018-07-28 04:26] LABS: BASOPHILS 0.2 % (0-2); EOSINOPHILS 0.9 % (0-7); HEMATOCRIT 36.1 % (42.0-54.0); IMMATURE GRANULOCYTES 0.2 % (0-5); LYMPHOCYTES 6.3 % (15-50); MCH 31.3 pg (26.0-34.0); MCHC 33.2 g/dL (31.0-37.0); MCV 94.3 fL (80.0-100.0); MEAN PLATELET VOLUME 11.1 fL (7.4-10.4); MONOCYTES 8.7 % (2-11); NEUTROPHILS 83.7 % (40-80); PLATELET COUNT 89 10x3/uL (130-400); RBC 3.83 10x6/uL (4.20-6.10); WBC 5.7 10x3/uL (4.8-10.8)
[2018-07-28 04:42] LABS: ALBUMIN 2.7 g/dL (3.4-5.0); ALKALINE PHOSPHATASE 40 U/L (46-116); BILIRUBIN - TOTAL 1.13 mg/dL (0.2-1.3); CALC OSMOLALITY 275 mosm/kg (275-300); CALCIUM 8.2 mg/dL (8.5-10.1); CARBON DIOXIDE 21.6 mmol/L (21.0-32.0); CHLORIDE - SERUM 106 mmol/L (98-107); CREATININE - SERUM 0.8 mg/dL (0.6-1.3); GLUCOSE 98 mg/dL (74-106); POTASSIUM - SERUM 3.6 mmol/L (3.5-5.1); PROTEIN - SERUM 6.2 g/dL (6.4-8.2); SODIUM 140 mmol/L (136-145); UREA NITROGEN 4 mg/dL (7-18); VANCOMYCIN - TROUGH 13.8 ug/mL (10.0-20.0); eGFR NON AFRICAN AMERICAN > 90 mL/min (90-120)
[2018-07-28 04:46] LABS: ALT (SGPT) 29 U/L (10-68)
[2018-07-29] VITALS (95 sets, daily range): BP systolic 75–103; BP diastolic 57–84
[2018-07-29 04:32] LABS: BASOPHILS 0.1 % (0-2); EOSINOPHILS 0 % (0-7); HEMATOCRIT 37.9 % (42.0-54.0); HEMOGLOBIN 12.5 g/dL (13.5-17.5); IMMATURE GRANULOCYTES 0.1 % (0-5); LYMPHOCYTES 9.3 % (15-50); MCH 31.1 pg (26.0-34.0); MCV 94.3 fL (80.0-100.0); MONOCYTES 8.2 % (2-11); NEUTROPHILS 82.3 % (40-80); PLATELET COUNT 99 10x3/uL (130-400); RBC 4.02 10x6/uL (4.20-6.10); RDW 14.9 % (11.5-14.5)
[2018-07-29 04:36] LABS: INR 1.22 (0.85-1.17); PROTIME 14.9 SECONDS (11.6-15.0)
[2018-07-29 04:37] LABS: APTT 44.7 SECONDS (22.8-39.4); D-DIMER-QUANTITATIVE 1.46 ug/mLFEU (0.20-0.54)
[2018-07-29 04:48] LABS: WBC 7.5 10x3/uL (4.8-10.8)
[2018-07-29 04:56] LABS: % SATURATION 5 % (15-55); ALBUMIN 2.9 g/dL (3.4-5.0); ALKALINE PHOSPHATASE 44 U/L (46-116); BILIRUBIN - TOTAL 1.08 mg/dL (0.2-1.3); CALCIUM 8.6 mg/dL (8.5-10.1); CARBON DIOXIDE 21.5 mmol/L (21.0-32.0); CHLORIDE - SERUM 104 mmol/L (98-107); FERRITIN 148 ng/mL (3-244); GLUCOSE 139 mg/dL (74-106); IRON 13 ug/dl (35-150); LDH 562 U/L (85-227); MAGNESIUM - SERUM 1.9 mg/dL (1.8-2.4); PHOSPHOROUS 4.8 mg/dL (2.5-4.9); PROTEIN - SERUM 6.9 g/dL (6.4-8.2); SODIUM 138 mmol/L (136-145); TOTAL IRON BIND CAPACITY 234 ug/dl (260-445); UNSAT IRON BIND CAPACITY 221 ug/dl (150-375)
[2018-07-29 05:07] LABS: ALT (SGPT) 47 U/L (10-68); CALC OSMOLALITY 277 mosm/kg (275-300); CREATININE - SERUM 1.1 mg/dL (0.6-1.3); UREA NITROGEN 12 mg/dL (7-18); eGFR NON AFRICAN AMERICAN 75 mL/min (90-120)
[2018-07-30] VITALS (93 sets, daily range): BP systolic 81–107; BP diastolic 62–81
[2018-07-30 04:42] LABS: BASOPHILS 0.1 % (0-2); EOSINOPHILS 0.1 % (0-7); HEMATOCRIT 36.4 % (42.0-54.0); IMMATURE GRANULOCYTES 0.2 % (0-5); MCH 31.3 pg (26.0-34.0); MCV 94.8 fL (80.0-100.0); MEAN PLATELET VOLUME 11.4 fL (7.4-10.4); MONOCYTES 9.9 % (2-11); NEUTROPHILS 81.7 % (40-80); PLATELET COUNT 107 10x3/uL (130-400); RBC 3.84 10x6/uL (4.20-6.10); RDW 14.6 % (11.5-14.5)
[2018-07-30 04:53] LABS: WBC 9.6 10x3/uL (4.8-10.8)
[2018-07-30 05:22] LABS: ALBUMIN 2.4 g/dL (3.4-5.0); BILIRUBIN - TOTAL 1.16 mg/dL (0.2-1.3); CARBON DIOXIDE 20.2 mmol/L (21.0-32.0); MAGNESIUM - SERUM 2.3 mg/dL (1.8-2.4); PHOSPHOROUS 5.5 mg/dL (2.5-4.9); POTASSIUM - SERUM 5.2 mmol/L (3.5-5.1); PROTEIN - SERUM 6.5 g/dL (6.4-8.2); VANCOMYCIN - TROUGH 34.2 ug/mL (10.0-20.0)
[2018-07-31] VITALS (93 sets, daily range): BP systolic 82–99; BP diastolic 61–79
[2018-07-31 01:06] LABS: AMORPHOUS SEDIMENT <1+ /lpf (NONE SEEN); APPEARANCE CLOUDY (CLEAR); BACTERIA FEW /hpf (NONE SEEN); BILIRUBIN NEGATIVE (NEGATIVE); COLOR YELLOW (YELLOW); EPITHELIAL CELLS RARE /hpf (0-5); GLUCOSE NEGATIVE (NEGATIVE); GRANULAR CAST 0-5 /lpf (NONE SEEN); KETONE NEGATIVE (NEGATIVE); NITRITE NEGATIVE (NEGATIVE); PROTEIN TRACE mg/dL (NEGATIVE); UROBILINOGEN NORMAL (NORMAL); WHITE CELLS - URINE 0-5 /hpf (0-5)
[2018-07-31 01:07] LABS: CREATININE - URINE 165.1 mg/dL (30-125); POTASSIUM - URINE 51.5 MMOL/L (12.0-62.0); PROTEIN - URINE 122.5 mg/dL (0.0-11.9)
[2018-07-31 05:16] LABS: BASOPHILS 0.1 % (0-2); EOSINOPHILS 0.1 % (0-7); HEMATOCRIT 36.5 % (42.0-54.0); HEMOGLOBIN 11.9 g/dL (13.5-17.5); IMMATURE GRANULOCYTES 0.5 % (0-5); LYMPHOCYTES 9.5 % (15-50); MCH 31.1 pg (26.0-34.0); MCHC 32.6 g/dL (31.0-37.0); MCV 95.3 fL (80.0-100.0); MEAN PLATELET VOLUME 11.5 fL (7.4-10.4); MONOCYTES 6.2 % (2-11); NEUTROPHILS 83.6 % (40-80); PLATELET COUNT 124 10x3/uL (130-400); RBC 3.83 10x6/uL (4.20-6.10); RDW 14.6 % (11.5-14.5)
[2018-07-31 05:36] LABS: ANION GAP 18.4 mmol/L (8-16); CALCIUM 8.6 mg/dL (8.5-10.1); CARBON DIOXIDE 20.7 mmol/L (21.0-32.0)
[2018-07-31 05:37] LABS: CREATININE - SERUM 3.3 mg/dL (0.6-1.3)
[2018-07-31 05:40] LABS: POTASSIUM - SERUM 6.1 mmol/L (3.5-5.1)
[2018-08-01] VITALS (92 sets, daily range): BP systolic 80–121; BP diastolic 60–78
[2018-08-01 06:09] LABS: BASOPHILS 0.2 % (0-2); EOSINOPHILS 0.8 % (0-7); HEMATOCRIT 35.9 % (42.0-54.0); HEMOGLOBIN 11.9 g/dL (13.5-17.5); IMMATURE GRANULOCYTES 0.9 % (0-5); LYMPHOCYTES 3.6 % (15-50); MCH 31.2 pg (26.0-34.0); MCHC 33.1 g/dL (31.0-37.0); MEAN PLATELET VOLUME 11.6 fL (7.4-10.4); MONOCYTES 7.9 % (2-11); NEUTROPHILS 86.6 % (40-80); RBC 3.82 10x6/uL (4.20-6.10); RDW 14.8 % (11.5-14.5)
[2018-08-01 06:15] LABS: PLATELET COUNT 166 10x3/uL (130-400); WBC 17.9 10x3/uL (4.8-10.8)
[2018-08-01 06:49] LABS: ALBUMIN 2.3 g/dL (3.4-5.0); BILIRUBIN - TOTAL 1.54 mg/dL (0.2-1.3); CALCIUM 8.3 mg/dL (8.5-10.1); CARBON DIOXIDE 25.1 mmol/L (21.0-32.0); CREATININE - SERUM 3.7 mg/dL (0.6-1.3); PROTEIN - SERUM 6.5 g/dL (6.4-8.2)
[2018-08-01 07:11] LABS: ANION GAP 17.1 mmol/L (8-16); POTASSIUM - SERUM 4.2 mmol/L (3.5-5.1)
[2018-08-02] VITALS: BP 89/75
[2018-08-02 00:15] VITALS: BP 109/75
[2018-08-02 00:30] VITALS: BP 104/79
[2018-08-02 00:45] VITALS: BP 131/50
[2018-08-02 00:50] VITALS: BP 89/46
[2018-08-02 00:55] VITALS: BP 140/97
[2018-08-03 14:20] LABS: OSMOLALITY - URINE 367 (())
[2018-08-04 04:14] LABS: HEPATITIS BE ANTIGEN Positive (Negative)
[2018-08-04 06:15] LABS: HEP B CORE AB TOTAL Positive (Negative); HEPATITIS C ANTIBODY <0.1 (0.0-0.9)
[2018-08-04 14:21] LABS: HEPATITIS BE ANTIBODY Negative (Negative)
== END 2018-08-02 01:20 | DRG 270 ==
LOC: D.ER 10:12 → D.ICU 12:26
PROVIDERS: Emergency Medicine; Family Medicine; Internal Medicine Interventional Cardiology; Internal Medicine Nephrology; Internal Medicine Pulmonary Disease
PROC: B2111ZZ Fluoroscopy of Multiple Coronary Arteries using Low Osmolar Contrast (ICD-10-PCS; 2018-07-24)
PROC: 4A023N7 Measurement of Cardiac Sampling and Pressure, Left Heart, Percutaneous Approach (ICD-10-PCS; 2018-07-24)
PROC: B2151ZZ Fluoroscopy of Left Heart using Low Osmolar Contrast (ICD-10-PCS; 2018-07-24)
PROC: 0BH17EZ Insertion of Endotracheal Airway into Trachea, Via Natural or Artificial Opening (ICD-10-PCS; 2018-07-24)
PROC: 5A1955Z Respiratory Ventilation, Greater than 96 Consecutive Hours (ICD-10-PCS; 2018-07-24)
PROC: 5A02210 Assistance with Cardiac Output using Balloon Pump, Continuous (ICD-10-PCS; 2018-07-24 13:00)
PROC: 02703FZ Dilation of Coronary Artery, One Artery with Three Intraluminal Devices, Percutaneous Approach (ICD-10-PCS; 2018-07-24 13:00)
PROC: 027035Z Dilation of Coronary Artery, One Artery with Two Drug-eluting Intraluminal Devices, Percutaneous Approach (ICD-10-PCS; principal; 2018-07-28 08:00)
PROC: 05HM33Z Insertion of Infusion Device into Right Internal Jugular Vein, Percutaneous Approach (ICD-10-PCS; 2018-07-30)
DX: I21.4 Non-ST elevation (NSTEMI) myocardial infarction (principal); J96.02 Acute respiratory failure with hypercapnia; J11.00 Influenza due to unidentified influenza virus with unspecified type of pneumonia; R53.2 Functional quadriplegia; I50.23 Acute on chronic systolic (congestive) heart failure; K72.00 Acute and subacute hepatic failure without coma; N17.0 Acute kidney failure with tubular necrosis; J96.01 Acute respiratory failure with hypoxia; E87.2 Acidosis; J44.0 Chronic obstructive pulmonary disease with (acute) lower respiratory infection; I25.110 Atherosclerotic heart disease of native coronary artery with unstable angina pectoris; R57.0 Cardiogenic shock; E11.65 Type 2 diabetes mellitus with hyperglycemia; D50.9 Iron deficiency anemia, unspecified; D69.6 Thrombocytopenia, unspecified